=== PATIENT | male | born 1995 | race American Indian/Alaskan Native ===

== ENCOUNTER 2019-08-31 16:42 | Emergency (ER) | payer OTHER ==
[2019-08-31 17:16] VITALS: BP 114/62
[2019-08-31] MEDS ORDERED: traMADol 50 MG TAB PO ONE (21:35)
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
== END 2019-08-31 22:00 | disposition home or self-care (01) ==
LOC: ED 16:42
DX: S16.1XXA Strain of muscle, fascia and tendon at neck level, initial encounter (principal); S39.012A Strain of muscle, fascia and tendon of lower back, initial encounter; F17.200 Nicotine dependence, unspecified, uncomplicated; Z79.899 Other long term (current) drug therapy; V49.49XA Driver injured in collision with other motor vehicles in traffic accident, initial encounter; Y93.89 Activity, other specified; Y92.410 Unspecified street and highway as the place of occurrence of the external cause; Y99.8 Other external cause status